=== PATIENT | female | born 1960 | race Caucasian/White ===

== ENCOUNTER 2016-12-20 15:09 | Outpatient (CLI) | payer MEDICARE ==
[2016-12-20 16:06] LABS: Hemoglobin 9.8 g/dL (12.0-16.0); Mean Corpuscular Hemoglobin 24.1 pg (27.0-31.0); Mean Corpuscular Volume 76.4 fL (81.0-99.0); Red Blood Cell (RBC) Count 4.05 mill/uL (4.20-5.40); White Blood Cell (WBC) Count 6.2 thou/uL (4.8-10.8)
[2016-12-20 16:07] LABS: #Lymphocytes 1.3 thou/uL (1.20-3.40); #Monocytes 0.6 thou/uL (0.11-0.59); #Neutrophils 4.2 thou/uL (1.40-6.50); %Basophils 0.5 % (0.0-1.0); %Eosinophils 0.2 % (0.0-10.0); %Lymphocytes 21.8 % (21.0-51.0); %Monocytes 10.1 % (0.0-10.0); %Neutrophils 67.4 % (42.0-75.0); Anisocytosis SLIGHT = 6-15 cells (100X) (0-5/hpf); Bilirubin, Total 0.3 mg/dL (0.2-1.2); Calcium 8.7 mg/dL (7.8-10.44); Chloride 98 mmol/L (98-107); Magnesium 1.8 mg/dL (1.6-2.6); Mean Corpuscular HGB CONC 31.6 g/dL (32.0-36.0); Mean Platelet Volume 9.5 fL (7.4-10.4); Platelet Count 175 thou/uL (130-400); Potassium 4.4 mmol/L (3.5-5.1); RBC Distribution Width 20.4 % (11.5-14.5); Sodium 135 mmol/L (136-145); Triglycerides 139 mg/dL (Less than 150)
[2016-12-20 16:08] LABS: PLT Morphology Comment Appears Adequate
[2016-12-20 18:24] LABS: Carbon Dioxide 18 mmol/L (22-29)
[2016-12-20 18:25] LABS: ALT (SGPT) 32 U/L (0-55); AST (SGOT) 42 U/L (5-34); Albumin 3.2 g/dL (3.5-5.0); Alkaline Phosphatase 88 U/L (40-150); Anion Gap 23 mmol/L (10-20); BUN (Urea Nitrogen) 32 mg/dL (9.8-20.1); Calc. Creatinine Clearance 0 mL/min (70-130); Estimated GFR-MDRD 77; Globulin 3.6 g/dL (2.4-3.5); Glucose 102 mg/dL (70-105); Phosphorus 4.3 mg/dL (2.3-4.7); Protein, Total 6.8 g/dL (6.0-8.3)
== END 2016-12-20 15:10 | disposition home or self-care (01) ==
LOC: MADLAB 15:09
PROVIDERS: ATTEND Family Medicine
DX: E44.0 Moderate protein-calorie malnutrition (principal); M34.9 Systemic sclerosis, unspecified; J44.1 Chronic obstructive pulmonary disease with (acute) exacerbation; I10 Essential (primary) hypertension
CPT/HCPCS: 36415; 80053; 83735; 84100; 84134; 84478; 85025